=== PATIENT | female | born 2000 | race Caucasian/White ===

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

== ENCOUNTER 2021-03-26 21:38 | Emergency (ER) | payer MEDICAID ==
[~2021-03-26] VITALS: Ht 165.1 cm; Wt 87.0 kg
[~2021-03-26 21:38] MED LIST: FERR325T6 PO; IBUP-2030 PO; PNV1TABL50 PO
[2021-03-26] MEDS ORDERED: IBUP-2030 MT (23:48)
[2021-03-26] MEDS ORDERED: NEOM28.37 TP (23:48)
[2021-03-26 23:58] VITALS: BP 125/84
[2021-03-27] MEDS ORDERED: IBUPROFEN 800MG TABLET PO ONE
== END 2021-03-27 00:53 | disposition home or self-care (01) ==
LOC: ER 21:38
DX: T24.111A Burn of first degree of right thigh, initial encounter (principal); T24.112A Burn of first degree of left thigh, initial encounter; T21.17XA Burn of first degree of female genital region, initial encounter; Z88.6 Allergy status to analgesic agent; Z91.013 Allergy to seafood; Z91.018 Allergy to other foods; X10.0XXA Contact with hot drinks, initial encounter; Y93.89 Activity, other specified; Y92.018 Other place in single-family (private) house as the place of occurrence of the external cause
CPT/HCPCS: 99283